=== PATIENT | female | born 1970 | race Caucasian/White ===

== ENCOUNTER → 2018-01-06 15:13 | Outpatient (CLI) | payer OTHER, SELFPAY ==
--- NOTE | 2018-01-06 15:54 | EKG12_ITS ---
Test Reason : PRE OP Blood Pressure : / mmHG Vent. Rate : 095 BPM Atrial Rate : 095 BPM P-R Int : 138 ms QRS Dur : 078 ms QT Int : 338 ms P-R-T Axes : 055 024 037 degrees QTc Int : 424 ms Sinus rhythm with sinus arrhythmia with occasional Premature ventricular complexes ST abnormality, possible digitalis effect Abnormal ECG No previous ECGs available Confirmed by JOJO ORNELAS ([id number]), supervising editor trailer VEGA CALIX ([id number]) on 01/07/2018 2:22:12 PM Referred By: RAJWINDER Confirmed By:JOJO ORNELAS
[2018-01-06 17:18] LABS: Hematocrit 40.6 % (37-47); Hemoglobin 13.2 g/dl (12.0-15.0); Mean Corp Hgb Conc 32.5 g/gl (32-36); Mean Corpuscular Hgb 31.5 pg (27.0-32.0); Mean Corpuscular Volume 96.9 fL (81-99); Platelet Count 286 K/mm3 (150-450); RBC Distribution Width CV 12.4 % (11.6-14.6); RBC Distribution Width SD 43.5 fl (35.1-43.9); Red Blood Count 4.19 M/mm3 (4.2-5.4); White Blood Count 6.2 K/mm3 (4.4-11.0)
[2018-01-06 17:20] LABS: Scan Indicated on CBC? Y/N NO
[2018-01-06 17:25] LABS: Anion Gap 10 (5-15); BUN 12 mg/dL (7-18); BUN/Creat Ratio 19.6 RATIO (10-20); Calcium,Total 8.6 mg/dL (8.5-10.1); Chloride 107 mmol/L (98-107); Creatinine, Serum 0.61 mg/dL (0.55-1.02); EST Glomerular Filtration Rate 112 mL/min (>60); Est Glom Filt Rate - Afr Amer 135 mL/min (>60); Glucose 87 mg/dL (74-106); Potassium 4.1 mmol/L (3.5-5.1); Sodium Level 140 mmol/L (136-145)
== END ==
PROVIDERS: Visit Provider Orthopaedic Surgery
DX: Z01.818 Encounter for other preprocedural examination (principal)
CPT/HCPCS: 36415; 80048; 85027; 93005